=== PATIENT | male | born 1950 | race Two or more races ===

== ENCOUNTER 2018-01-31 07:16 | Inpatient (IN) | payer MEDICARE, MEDICAID ==
[~2018-01-31] VITALS: Ht 177.8 cm; Wt 72.2 kg
[2018-01-31] MEDS ORDERED: METO-395 PO (07:46)
[2018-01-31] MEDS ORDERED: LISI-600 PO (07:46)
[2018-01-31] MEDS ORDERED: furosemide 10 MG/1 ML 10ml inj IV ONE (08:15)
[2018-01-31 08:25] LABS: BASOPHILS # (AUTO) 0.1 X10'3 (0-0.2); EOSINOPHILS % (AUTO) 0 % (0-6); HEMATOCRIT 47.7 % (42.0-52.0); HEMOGLOBIN 15.6 g/dl (14.0-17.9); LYMPHOCYTES # (AUTO) 1.4 X10'3 (1.1-4.8); MEAN CORPUSCULAR HEMOGLOBIN 30.5 PG (27.0-31.0); MEAN CORPUSCULAR HGB CONC 32.8 % (33.0-36.5); MEAN PLATELET VOLUME 9.4 FL (7.4-10.4); MONOCYTES # (AUTO) 0.5 X10'3 (0-0.9); MONOCYTES % (AUTO) 4.4 % (2-12); NEUTROPHILS # (AUTO) 8.8 X10'3 (1.8-7.7); NEUTROPHILS % (AUTO) 81.6 % (42-75); PLATELET COUNT 258 X10'3 (140-440); RED BLOOD COUNT 5.13 X10'6 (4.70-6.10); RED CELL DISTRIBUTION WIDTH 13.1 % (11.5-14.5); WHITE BLOOD COUNT 10.7 X10'3 (4.5-11.0)
[2018-01-31] MEDS ORDERED: magnesium 4gm in 100ml NS 100 ML IV PRN (08:30)
[2018-01-31] MEDS ORDERED: mag hydrox/Alum hydrox/simeth 30ml oral suspension PO PRN (08:30)
[2018-01-31] MEDS ORDERED: ondansetron/PF 4mg/2ml inj IV PRN (08:30)
[2018-01-31] MEDS ORDERED: magnesium Cl slow-release 64mg tablet PO PRN (08:30)
[2018-01-31] MEDS ORDERED: potassium Cl 20 mEq SR tablet PO PRN ×2 (08:30)
[2018-01-31] MEDS ORDERED: potassium Cl 40MEQ/NS 500ml 500 ML IV PRN ×2 (08:30)
[2018-01-31] MEDS ORDERED: lisinopril 20mg tablet PO SCH ×2 (08:30→19:05)
[2018-01-31] MEDS ORDERED: magnesium hydroxide 30ml (MOM) UD suspension PO PRN (08:30)
[2018-01-31 08:40] LABS: ALANINE AMINOTRANSFERASE 30 U/L (12-78); ALBUMIN 3.5 G/DL (3.4-5.0); ALBUMIN/GLOBULIN RATIO 0.8 (1.1-1.5); ALKALINE PHOSPHATASE 103 IU/L (46-116); ANION GAP 9 (8-16); ASPARTATE AMINO TRANSFERASE 24 U/L (10-37); BILIRUBIN,TOTAL 0.4 MG/DL (0.1-1.0); BLOOD UREA NITROGEN 21 MG/DL (7-18); BUN/CREATININE RATIO 18.3 (5.4-32.0); CHLORIDE 104 MMOL/L (99-107); CREATININE 1.15 MG/DL (0.60-1.10); GLUCOSE 118 MG/DL (70-104); POTASSIUM 4.5 MMOL/L (3.5-5.1); SODIUM 139 MMOL/L (135-145); TOTAL CARBON DIOXIDE 26.5 MMOL/L (24-32); TOTAL PROTEIN 7.9 G/DL (6.4-8.2); eGFR 63 ML/MIN
[2018-01-31 08:41] LABS: PARTIAL THROMBOPLASTIN TIME 36 SECONDS (22-32); PROTHROMBIN TIME 10.2 SECONDS (9.0-12.0)
[2018-01-31 08:48] LABS: MAGNESIUM 2.2 MG/DL (1.5-2.4)
[2018-01-31 09:01] LABS: CHOL/HDL RATIO 4.3 (0.00-4.99); CHOLESTEROL 176 MG/DL (0-200); HDL CHOLESTEROL 41 MG/DL (35-60); LDL CHOLESTEROL 118 MG/DL (50-100); TRIGLYCERIDES 102 MG/DL (20-135)
[2018-01-31] MEDS: atorvastatin 20mg tablet PO SCH (09:08)
[2018-01-31 09:15] VITALS: BP 171/76
[2018-01-31 11:00] VITALS: BP 139/77
[2018-01-31] MEDS: normal saline 1000ml 1,000 ML IV SCH (12:45)
[2018-01-31] MEDS ORDERED: metoprolol tartrate 25mg tablet PO ONE (12:45)
[2018-01-31 15:00] VITALS: BP 157/81
--- NOTE | 2018-01-31 18:21 | NUR ---
Problems reprioritized. Patient report given, questions answered & plan of care reviewed with Ana Paula COUCH.
--- NOTE | 2018-01-31 18:49 | NUR ---
Sent the following page to MD Avery at this time: PAGER ID: [phone] MESSAGE: Adelaida Dotson [id number] Admitted for HTN- BP now is 200/96, 177/94. No PRN's listed. PLease advise. Thank you- Ana Paula COUCH X [phone]
[2018-01-31 19:00] VITALS: BP 177/94
--- NOTE | 2018-01-31 19:04 | NUR ---
Received call back from MD Avery- states to give 20mg Lisinopril NOW, change daily 20mg Lisinopril to 40mg Lisinopril, and start PRN Hydralazine 10mg IV Q4H PRN for SBP>170. RHYS Aly/ and entered at this time.
[2018-01-31] MEDS: metoprolol tartrate 25mg tablet PO SCH (19:14)
[2018-01-31] MEDS: enoxaparin 40mg/0.4ml syringe SQ SCH (19:14)
[2018-01-31] MEDS: enoxaparin 30mg/0.3ml syringe SUBCUT SCH (19:15)
[2018-01-31] MEDS ORDERED: metoprolol succinate 25mg (24-HOUR) SR. Tablet PO SCH (21:00)
[2018-01-31 23:00] VITALS: BP 189/90
[2018-01-31] MEDS: hydrALAZINE 20mg/ml inj. IV PRN (23:09)
[2018-01-31] MEDS: morphine 4 MG/ML inj SYRINge IV PRN (23:13)
[2018-02-01] MEDS: normal saline 1000ml 1,000 ML IV SCH (02:56)
[2018-02-01 03:00] VITALS: BP 179/100
[2018-02-01] MEDS: hydrALAZINE 20mg/ml inj. IV PRN ×3 (03:13→13:24)
[2018-02-01 05:24] LABS: BASOPHILS # (AUTO) 0.1 X10'3 (0-0.2); BASOPHILS % (AUTO) 1.1 % (0-1); EOSINOPHILS # (AUTO) 0.1 X10'3 (0-0.9); EOSINOPHILS % (AUTO) 1.2 % (0-6); HEMATOCRIT 47.4 % (42.0-52.0); HEMOGLOBIN 15.7 g/dl (14.0-17.9); LYMPHOCYTES # (AUTO) 1.9 X10'3 (1.1-4.8); LYMPHOCYTES % (AUTO) 17.9 % (21-51); MEAN CORPUSCULAR HEMOGLOBIN 30.6 PG (27.0-31.0); MEAN CORPUSCULAR HGB CONC 33.2 % (33.0-36.5); MEAN CORPUSCULAR VOLUME 92.4 FL (78-98); MEAN PLATELET VOLUME 9.7 FL (7.4-10.4); MONOCYTES # (AUTO) 0.6 X10'3 (0-0.9); MONOCYTES % (AUTO) 5.6 % (2-12); NEUTROPHILS % (AUTO) 74.2 % (42-75); PLATELET COUNT 272 X10'3 (140-440); RED BLOOD COUNT 5.13 X10'6 (4.70-6.10); RED CELL DISTRIBUTION WIDTH 13.2 % (11.5-14.5); WHITE BLOOD COUNT 10.8 X10'3 (4.5-11.0)
[2018-02-01 06:09] LABS: ALANINE AMINOTRANSFERASE 19 U/L (12-78); ALBUMIN 3.3 G/DL (3.4-5.0); ALBUMIN/GLOBULIN RATIO 0.8 (1.1-1.5); ALKALINE PHOSPHATASE 95 IU/L (46-116); ANION GAP 10 (8-16); ASPARTATE AMINO TRANSFERASE 37 U/L (10-37); BILIRUBIN,TOTAL 0.4 MG/DL (0.1-1.0); BLOOD UREA NITROGEN 17 MG/DL (7-18); BUN/CREATININE RATIO 13.7 (5.4-32.0); CALCIUM 8.5 MG/DL (8.5-10.1); CHLORIDE 104 MMOL/L (99-107); CREATININE 1.24 MG/DL (0.60-1.10); GLUCOSE 113 MG/DL (70-104); MAGNESIUM 1.9 MG/DL (1.5-2.4); POTASSIUM 3.6 MMOL/L (3.5-5.1); SODIUM 138 MMOL/L (135-145); TOTAL PROTEIN 7.5 G/DL (6.4-8.2); eGFR 58 ML/MIN
--- NOTE | 2018-02-01 07:01 | NUR ---
PATIENT AWAKE ALERT. PATIENT'S PRIMARY LANGUAGE IS PASHTO. USING PHONE LABORER [employer]UCING [employer] TEACHING GIVEN REGARDING HEART CATH, ALSO ASSISTED WITH ASSESSMENT QUESTIONS.PATIENT SIGNED CONSENT FOR HEART CATH WITH HIS AND NURSING TO WITNESS.PATIENT MEDICATIONS GIVEN EARLY DUE TO ELEVATED B/P .DR. CANCHOLA INTO SEE PATIENT AND APPRISED OF B/P AND C/O HEADACHE. HOB UP PEDAL PULSES MARKED, PREP COMPLETED. Addendum: 02/01/18 at 3 by Keyana Hilton RN Amended: Links added.
[2018-02-01 07:17] VITALS: BP 173/78
[2018-02-01] MEDS: morphine 4 MG/ML inj SYRINge IV PRN ×2 (07:42→12:59)
[2018-02-01] MEDS: aspirin 325mg tablet PO SCH (07:46)
[2018-02-01] MEDS: metoprolol tartrate 25mg tablet PO SCH (07:46)
[2018-02-01] MEDS: enoxaparin 30mg/0.3ml syringe SUBCUT SCH (07:47)
[2018-02-01] MEDS: enoxaparin 40mg/0.4ml syringe SQ SCH (07:48)
[2018-02-01] MEDS: atorvastatin 20mg tablet PO SCH (07:55)
[2018-02-01] MEDS ORDERED: lisinopril 20mg tablet PO SCH (08:00)
[2018-02-01] MEDS: K and/or MAG REPLACEMENT MC SCH (08:08)
--- NOTE | 2018-02-01 09:08 | NUR ---
PHONED HULL BUILDER TO APPRISDheeraj PHIPPS OF PATIENT'S B/P AND HEAD AND NECK PAIN. MEDICATION HAD BEEN GIVEN TO TX B/P AND AGUIRRE. HOWEVER, PATIENT DENIES RELIEF OF PAIN. RECEIVED STAT ORDERS FOR BRAIN AND CERVICAL CT WITH POSS HYPERTENSIVE BLEED. PATIENT RETURNED FROM CT AND TRANSFERRED TO HULL BUILDER. Addendum: 02/01/18 at 1913 by Keyana Hilton RN Amended: Links added.
--- NOTE | 2018-02-01 10:05 | NUR ---
PATIENT'S AM MEDICATIONS GIVEN EARLY; HOWEVER, B/P RECHECKED AND IS NOW INCREASED TO 185/92; HYDRALAZINE GIVEN. CONTACTED ASSESSMENT SERVICES MANAGER AND APPRISED DR. PHIPPS OF INCREASED BLOOD PRESSURE, AND C/O HEADACHE NOT RELIVED BY MORPHINE SULFATE.STAT CT ORDERED FOR BRAIN AND CERVICAL SPINE NOTING HEADACHE WITH HYPERTENSION,PAGED DDR. CANCHOLA AND APRISED HIM OF CHANGED WITH PATIENT; ORDERS RECEIVED AND NOTED. Addendum: 02/01/18 at 1031 by Keyana Hilton RN Amended: Links added.
[2018-02-01] MEDS ORDERED: fentaNYL/PF 50MCG/1 ML 2ML syringe ONE (10:27)
[2018-02-01] MEDS ORDERED: LIDOcaine 1% (10mg/ml)w/preservative injection 20ml MDV ONE (10:27)
[2018-02-01] MEDS ORDERED: midazolam 2 mg/2 ml injection ONE (10:27)
[2018-02-01] MEDS ORDERED: iohexol 350MG/ML 100ml bottle IV ONE (10:27)
[2018-02-01] MEDS ORDERED: iohexol 350 MG/ML 50ML vial IV ONE ×3 (10:27→11:26)
[2018-02-01] MEDS ORDERED: enalaprilat dihydrate 2.5mg/2ml vial IV ONE (10:30)
--- NOTE | 2018-02-01 11:14 | NUR ---
RETURNED [employer]O CORPORATE EXECUTIVE, RT GROIN PUNCTURE SITE DRESSING CDI PEDAL PULSES POSITIVE PER PALPATION. PATIENT'S B/P IS ELEVATED , AND HE IS ANXIOUS AND C/O NECK PAIN. MEDICATED FOR B/P, NECK PAIN AND ANXIETY. DR. CANCHOLA ORDERED MRI OF HEAD AND NECK WHEN PATIENT ABLED TO STAND. Addendum: 02/01/18 at 1924 by Keyana Hilton RN Amended: Links added.
[2018-02-01] MEDS ORDERED: nitroGLYCERIN-Tridil 50MG/D5W 250 ML IV ONE (11:40)
[2018-02-01] MEDS ORDERED: hydrALAZINE 20mg/ml inj. IV ONE (11:47)
[2018-02-01] MEDS ORDERED: metoprolol tartrate 1mg/ml inj IV ONE (11:49)
--- NOTE | 2018-02-01 11:54 | NUR ---
Paged Dr Callaway "PAGER ID: [phone] MESSAGE: [id number] would like for you to call him. He called from the airport maintenance laborer, [phone]"
[2018-02-01 12:15] VITALS: BP 134/90
[2018-02-01] MEDS ORDERED: proCHLORperazine 10 MG/2 ml inj IV PRN (12:35)
[2018-02-01] MEDS ORDERED: nitroGLYCERIN 0.4mg SUBLingual tab SL PRN (12:35)
[2018-02-01] MEDS ORDERED: normal saline 1000ml 1,000 ML IV ONE (12:35)
[2018-02-01] MEDS ORDERED: OXAZEpam 15mg capsule PO PRN (12:35)
--- NOTE | 2018-02-01 17:08 | NUR ---
PAGER ID: [phone] MESSAGE: [phone]: MEGHAN - MRI CONFIRMED STROKE L [facility] NURSE PAT EXT [id number]
--- NOTE | 2018-02-01 17:20 | NUR ---
PAGER ID: [phone] MESSAGE: [phone]: MEGHAN - CALL DR. PAGE, RADIOLOGIST @ [phone] [facility]. THANK YOU
--- NOTE | 2018-02-01 17:30 | NUR ---
DR. CANCHOLA CALLED, INFORMED HE SPOKE WITH DR. PAGE RADIOLOGIST REGARDING PATIENTS MRI RESULTS. NEW ORDERS RECEIVED: D/C LOVENOX, ASA OK, HOLD BP MEDS TONIGHT - DO NOT CONTROL BP TOO TIGHTLY, SBP OK TO BE > 180, TREAT BP ONLY IF SBP > 200-220; TELE NEURO CONSULT.
--- NOTE | 2018-02-01 18:00 | NUR ---
DR. PAGE CALLED AND REPORTED LT [facility] ACUTE INFARCT. DR. CANCHOLA PAGEBrooks WITH RESULTS OF MRI.STROKE NURSE PAGED. PATIENT'S FAMILY AT BEDSIDE.CALL LIGHT IN REACH. Addendum: 02/01/18 at 1924 by Keyana Hilton RN Amended: Links added.
--- NOTE | 2018-02-01 18:10 | NUR ---
Patient in room MED 313. I have received report from Pat and had the opportunity to ask questions and assume patient care.
--- NOTE | 2018-02-01 18:52 | NUR ---
Dr Calderon notified of patient, will see patient in the morning ordered carotid us.
[2018-02-01 19:00] VITALS: BP 196/99
[2018-02-01 23:00] VITALS: BP 168/97
[2018-02-02] MEDS: morphine 4 MG/ML inj SYRINge IV PRN ×2 (00:52→18:40)
[2018-02-02 03:00] VITALS: BP 186/118
[2018-02-02 06:33] LABS: BASOPHILS # (AUTO) 0.1 X10'3 (0-0.2); BASOPHILS % (AUTO) 0.6 % (0-1); EOSINOPHILS % (AUTO) 0.3 % (0-6); HEMOGLOBIN 15.4 g/dl (14.0-17.9); LYMPHOCYTES # (AUTO) 1.4 X10'3 (1.1-4.8); LYMPHOCYTES % (AUTO) 13.6 % (21-51); MEAN CORPUSCULAR HEMOGLOBIN 30.3 PG (27.0-31.0); MEAN CORPUSCULAR HGB CONC 32.8 % (33.0-36.5); MEAN CORPUSCULAR VOLUME 92.6 FL (78-98); MEAN PLATELET VOLUME 9.5 FL (7.4-10.4); MONOCYTES # (AUTO) 0.8 X10'3 (0-0.9); MONOCYTES % (AUTO) 7.7 % (2-12); NEUTROPHILS # (AUTO) 7.8 X10'3 (1.8-7.7); NEUTROPHILS % (AUTO) 77.8 % (42-75); PLATELET COUNT 246 X10'3 (140-440); RED BLOOD COUNT 5.08 X10'6 (4.70-6.10); RED CELL DISTRIBUTION WIDTH 13.5 % (11.5-14.5)
[2018-02-02 07:00] VITALS: BP 203/93
[2018-02-02 07:09] LABS: ALANINE AMINOTRANSFERASE 27 U/L (12-78); ALBUMIN 3.3 G/DL (3.4-5.0); ALBUMIN/GLOBULIN RATIO 0.8 (1.1-1.5); ALKALINE PHOSPHATASE 97 IU/L (46-116); ANION GAP 12 (8-16); ASPARTATE AMINO TRANSFERASE 25 U/L (10-37); BILIRUBIN,TOTAL 0.9 MG/DL (0.1-1.0); BLOOD UREA NITROGEN 15 MG/DL (7-18); CALCIUM 9.3 MG/DL (8.5-10.1); CHLORIDE 104 MMOL/L (99-107); CREATININE 1.15 MG/DL (0.60-1.10); GLUCOSE 112 MG/DL (70-104); MAGNESIUM 1.9 MG/DL (1.5-2.4); POTASSIUM 3.7 MMOL/L (3.5-5.1); SODIUM 139 MMOL/L (135-145); TOTAL CARBON DIOXIDE 22.9 MMOL/L (24-32); TOTAL PROTEIN 7.4 G/DL (6.4-8.2); eGFR 63 ML/MIN
--- NOTE | 2018-02-02 07:55 | NUR ---
DR FRANCIS AT BEDSIDE TO EVALUATE PATIENT
[2018-02-02] MEDS: K and/or MAG REPLACEMENT MC SCH (08:00)
[2018-02-02] MEDS: atorvastatin 20mg tablet PO SCH (08:26)
[2018-02-02] MEDS: aspirin 325mg tablet PO SCH (08:26)
[2018-02-02] MEDS: amLODIPine 5mg tablet PO SCH ×2 (08:26→18:44)
[2018-02-02] MEDS: clopidogrel 75mg tablet PO SCH (08:26)
[2018-02-02] MEDS: lisinopril 20mg tablet PO SCH ×2 (08:27→18:45)
[2018-02-02] MEDS: metoprolol tartrate 50mg tablet PO SCH ×2 (08:27→20:00)
[2018-02-02 11:00] VITALS: BP 185/102
[2018-02-02] MEDS: hydrALAZINE 20mg/ml inj. IV PRN (11:58)
[2018-02-02 15:00] VITALS: BP 165/72
[2018-02-02 19:00] VITALS: BP_SYST 202; BP_SYST 210; BP_DIAS 102; BP_DIAS 99
[2018-02-02 23:00] VITALS: BP 163/86
[2018-02-03] VITALS (7 sets, daily range): BP systolic 136–176; BP diastolic 79–93
[2018-02-03] MEDS: morphine 4 MG/ML inj SYRINge IV PRN (00:49)
--- NOTE | 2018-02-03 06:36 | NUR ---
Patient in room MED 312. I have received report from IZA Martin and had the opportunity to ask questions and assume patient care.
[2018-02-03 06:39] LABS: BASOPHILS % (AUTO) 0.3 % (0-1); EOSINOPHILS # (AUTO) 0.1 X10'3 (0-0.9); HEMATOCRIT 47.7 % (42.0-52.0); HEMOGLOBIN 15.7 g/dl (14.0-17.9); LYMPHOCYTES # (AUTO) 1.4 X10'3 (1.1-4.8); LYMPHOCYTES % (AUTO) 12.5 % (21-51); MEAN CORPUSCULAR HEMOGLOBIN 30.3 PG (27.0-31.0); MEAN CORPUSCULAR HGB CONC 32.8 % (33.0-36.5); MEAN CORPUSCULAR VOLUME 92.4 FL (78-98); MEAN PLATELET VOLUME 9.7 FL (7.4-10.4); MONOCYTES % (AUTO) 8.6 % (2-12); NEUTROPHILS # (AUTO) 8.6 X10'3 (1.8-7.7); NEUTROPHILS % (AUTO) 77.6 % (42-75); PLATELET COUNT 242 X10'3 (140-440); RED BLOOD COUNT 5.16 X10'6 (4.70-6.10); RED CELL DISTRIBUTION WIDTH 12.9 % (11.5-14.5); WHITE BLOOD COUNT 11.1 X10'3 (4.5-11.0)
[2018-02-03 07:09] LABS: ALANINE AMINOTRANSFERASE 33 U/L (12-78); ALBUMIN 3.2 G/DL (3.4-5.0); ALBUMIN/GLOBULIN RATIO 0.7 (1.1-1.5); ALKALINE PHOSPHATASE 102 IU/L (46-116); ANION GAP 13 (8-16); ASPARTATE AMINO TRANSFERASE 29 U/L (10-37); BILIRUBIN,TOTAL 0.8 MG/DL (0.1-1.0); BLOOD UREA NITROGEN 16 MG/DL (7-18); BUN/CREATININE RATIO 15.1 (5.4-32.0); CALCIUM 8.8 MG/DL (8.5-10.1); CHLORIDE 102 MMOL/L (99-107); CREATININE 1.06 MG/DL (0.60-1.10); GLUCOSE 108 MG/DL (70-104); MAGNESIUM 1.9 MG/DL (1.5-2.4); POTASSIUM 3.5 MMOL/L (3.5-5.1); SODIUM 137 MMOL/L (135-145); TOTAL CARBON DIOXIDE 22.3 MMOL/L (24-32); TOTAL PROTEIN 7.5 G/DL (6.4-8.2); eGFR 69 ML/MIN
[2018-02-03] MEDS: metoprolol tartrate 50mg tablet PO SCH (08:00)
[2018-02-03] MEDS: K and/or MAG REPLACEMENT MC SCH (08:00)
[2018-02-03] MEDS: atorvastatin 20mg tablet PO SCH (08:37)
[2018-02-03] MEDS: lisinopril 20mg tablet PO SCH ×2 (08:39→19:11)
[2018-02-03] MEDS: clopidogrel 75mg tablet PO SCH (08:39)
[2018-02-03] MEDS: aspirin 325mg tablet PO SCH (08:39)
[2018-02-03] MEDS: amLODIPine 5mg tablet PO SCH ×2 (08:46→19:11)
[2018-02-03] MEDS: metoprolol tartrate 25mg tablet PO SCH ×2 (10:30→19:11)
[2018-02-03] MEDS: hydrALAZINE 25 MG tablet PO SCH ×2 (16:21→23:11)
--- NOTE | 2018-02-03 18:29 | NUR ---
Problems reprioritized. Patient report given, questions answered & plan of care reviewed with IZA Pozo .
--- NOTE | 2018-02-03 18:30 | NUR ---
Problems reprioritized. Patient report given, questions answered & plan of care reviewed with IZA Jimeenz.
[2018-02-04 03:00] VITALS: BP_SYST 161; BP_SYST 165; BP_DIAS 79; BP_DIAS 81
[2018-02-04 06:00] VITALS: BP_SYST 166; BP_SYST 171; BP_DIAS 77; BP_DIAS 84
--- NOTE | 2018-02-04 06:00 | NUR ---
Patient in room MED 312. I have received report from IZA Pozo and had the opportunity to ask questions and assume patient care.
[2018-02-04] MEDS: hydrALAZINE 20mg/ml inj. IV PRN (06:01)
--- NOTE | 2018-02-04 06:25 | NUR ---
Problems reprioritized. Patient report given, questions answered & plan of care reviewed with Topher RN.
[2018-02-04 06:41] LABS: BASOPHILS # (AUTO) 0.1 X10'3 (0-0.2); BASOPHILS % (AUTO) 0.7 % (0-1); EOSINOPHILS # (AUTO) 0.2 X10'3 (0-0.9); EOSINOPHILS % (AUTO) 1.6 % (0-6); HEMATOCRIT 48.8 % (42.0-52.0); LYMPHOCYTES # (AUTO) 1.7 X10'3 (1.1-4.8); LYMPHOCYTES % (AUTO) 16.1 % (21-51); MEAN CORPUSCULAR HEMOGLOBIN 30.7 PG (27.0-31.0); MEAN CORPUSCULAR HGB CONC 32.7 % (33.0-36.5); MEAN CORPUSCULAR VOLUME 93.7 FL (78-98); MEAN PLATELET VOLUME 9.7 FL (7.4-10.4); MONOCYTES # (AUTO) 0.8 X10'3 (0-0.9); MONOCYTES % (AUTO) 7.6 % (2-12); NEUTROPHILS # (AUTO) 7.8 X10'3 (1.8-7.7); PLATELET COUNT 237 X10'3 (140-440); RED CELL DISTRIBUTION WIDTH 12.4 % (11.5-14.5); WHITE BLOOD COUNT 10.6 X10'3 (4.5-11.0)
[2018-02-04 06:51] LABS: ALANINE AMINOTRANSFERASE 42 U/L (12-78); ALBUMIN 3.2 G/DL (3.4-5.0); ALBUMIN/GLOBULIN RATIO 0.7 (1.1-1.5); ALKALINE PHOSPHATASE 92 IU/L (46-116); ANION GAP 11 (8-16); ASPARTATE AMINO TRANSFERASE 31 U/L (10-37); BILIRUBIN,TOTAL 0.8 MG/DL (0.1-1.0); BLOOD UREA NITROGEN 17 MG/DL (7-18); BUN/CREATININE RATIO 15.7 (5.4-32.0); CALCIUM 8.6 MG/DL (8.5-10.1); CHLORIDE 103 MMOL/L (99-107); CREATININE 1.08 MG/DL (0.60-1.10); GLUCOSE 96 MG/DL (70-104); MAGNESIUM 2.1 MG/DL (1.5-2.4); POTASSIUM 3.6 MMOL/L (3.5-5.1); SODIUM 138 MMOL/L (135-145); TOTAL CARBON DIOXIDE 23.9 MMOL/L (24-32); TOTAL PROTEIN 7.5 G/DL (6.4-8.2); eGFR 68 ML/MIN
[2018-02-04] MEDS: hydrALAZINE 25 MG tablet PO SCH (07:52)
[2018-02-04] MEDS: atorvastatin 20mg tablet PO SCH (07:53)
[2018-02-04] MEDS: metoprolol tartrate 25mg tablet PO SCH (07:54)
[2018-02-04] MEDS: clopidogrel 75mg tablet PO SCH (07:55)
[2018-02-04] MEDS: lisinopril 20mg tablet PO SCH (07:56)
[2018-02-04] MEDS: K and/or MAG REPLACEMENT MC SCH (08:00)
[2018-02-04] MEDS: amLODIPine 5mg tablet PO SCH (08:03)
[2018-02-04 08:16] VITALS: BP_SYST 152; BP_SYST 159; BP_DIAS 81; BP_DIAS 96
[2018-02-04] MEDS ORDERED: aspirin 81mg tablet.DR PO SCH (08:30)
[2018-02-04] MEDS ORDERED: ATOR20TA66 PO (10:55)
[2018-02-04] MEDS ORDERED: NOR5T PO (10:55)
[2018-02-04] MEDS ORDERED: LISI-600 PO (10:55)
[2018-02-04] MEDS ORDERED: HYDR-4069 PO (10:55)
[2018-02-04] MEDS ORDERED: ASPI-1071 PO (10:55)
[2018-02-04] MEDS ORDERED: CLOP75TA35 PO (10:55)
[2018-02-04 11:00] VITALS: BP 147/75
--- NOTE | 2018-02-04 11:16 | NUR ---
Prescriptions called in to [facility] pharmacy, [place], [place]
--- NOTE | 2018-02-04 11:41 | NUR ---
[place] documentation: I have reviewed and agree with all interventions, assessments performed and documented by Jenae COUCH. [place] Medication Administration: For this medication-pass time frame, all medication were reviewed, dispensed, administered and documented per hospital policy by Jenae COUCH.
--- NOTE | 2018-02-04 12:30 | NUR ---
This patient has been discharged home with spouse. All prescriptions have been called into pharmacy ([facility] in [place]). I went over all discharge instructions with patient and family members, all question answered and states no further questions at this time. Patient left in stable condition. IV was removed and catheter intact and tele monitor removed from patient, cleaned and turned into the tele it desktop support technician.
--- NOTE | 2018-02-04 13:40 | NUR ---
Initial: Pt admit w/ HTN emergency, acute CVA, and STEMI. PO 50-75% heart healthy diet good given age. LBM 01/31. Skin intact. Will continue to monitor for additional protein needs. Rec: 1. continue heart healthy diet 2. monitor for ONS needs 3. wt per rx Addendum: 02/04/18 at [address] Amended: Links added.
== END 2018-02-04 12:30 | disposition home or self-care (01) | DRG 280 ==
LOC: ER 07:17 → ED HOLD 08:29 → PCU 3S 09:50 → MED 3N 02-01 13:50
PROVIDERS: ADMIT Internal Medicine; ATTEND Family Medicine
PROC: 4A023N7 Measurement of Cardiac Sampling and Pressure, Left Heart, Percutaneous Approach (ICD-10-PCS; principal; 2018-02-01)
PROC: B2111ZZ Fluoroscopy of Multiple Coronary Arteries using Low Osmolar Contrast (ICD-10-PCS; 2018-02-01)
PROC: B2151ZZ Fluoroscopy of Left Heart using Low Osmolar Contrast (ICD-10-PCS; 2018-02-01)
PROC: B2181ZZ Fluoroscopy of Left Internal Mammary Bypass Graft using Low Osmolar Contrast (ICD-10-PCS; 2018-02-01)
PROC: B2171ZZ Fluoroscopy of Right Internal Mammary Bypass Graft using Low Osmolar Contrast (ICD-10-PCS; 2018-02-01)
PROC: B2131ZZ Fluoroscopy of Multiple Coronary Artery Bypass Grafts using Low Osmolar Contrast (ICD-10-PCS; 2018-02-01)
PROC: B4181ZZ Fluoroscopy of Bilateral Renal Arteries using Low Osmolar Contrast (ICD-10-PCS; 2018-02-01)
PROC: B41D1ZZ Fluoroscopy of Aorta and Bilateral Lower Extremity Arteries using Low Osmolar Contrast (ICD-10-PCS; 2018-02-01)
DX: T82.898A Other specified complication of vascular prosthetic devices, implants and grafts, initial encounter (principal); I21.4 Non-ST elevation (NSTEMI) myocardial infarction; I63.9 Cerebral infarction, unspecified; I50.31 Acute diastolic (congestive) heart failure; N17.9 Acute kidney failure, unspecified; I16.0 Hypertensive urgency; H53.2 Diplopia; I11.0 Hypertensive heart disease with heart failure; F17.219 Nicotine dependence, cigarettes, with unspecified nicotine-induced disorders; Y83.2 Surgical operation with anastomosis, bypass or graft as the cause of abnormal reaction of the patient, or of later complication, without mention of misadventure at the time of the procedure; I25.10 Atherosclerotic heart disease of native coronary artery without angina pectoris; I25.2 Old myocardial infarction; Z91.14 Patient's other noncompliance with medication regimen; Z95.1 Presence of aortocoronary bypass graft; Z95.5 Presence of coronary angioplasty implant and graft; Z79.02 Long term (current) use of antithrombotics/antiplatelets; Z79.82 Long term (current) use of aspirin; Z79.899 Other long term (current) drug therapy; Z86.73 Personal history of transient ischemic attack (TIA), and cerebral infarction without residual deficits; Y92.89 Other specified places as the place of occurrence of the external cause
CPT/HCPCS: 36415; 70450; 70544; 70547; 70551; 71045; 72125; 75630; 80053; 80061; 83735; 83880; 84484; 85025; 85610; 85730; 93005; 93306; 93459; 93880; 96374; 97110; 97116; 97162; 97530; 99152; 99153; 99285; A4620; A6257; C1760; C1769; G0378; J0360; J1644; J1650; J1940; J2001; J2250; J2270; J3010; J3490; J7030; Q9967